=== PATIENT | female | born 1990 | race African-American/Black ===

== ENCOUNTER 2017-08-28 09:52 | Emergency (ER) | payer BC, OTHER ==
[~2017-08-28] VITALS: Ht 160 cm; Wt 105.1 kg
[~2017-08-28 09:52] MED LIST: DIPH25CA37 PO; TYLOTC500 PO
[2017-08-28 10:06] VITALS: TEMP 37.3; Ht 160 cm; Wt 105.1 kg
[2017-08-28] MEDS ORDERED: OSELTAMIVIR PHOSPHATE 75 MG CAP PO STA (10:47)
[2017-08-28] MEDS ORDERED: KETOROLAC TROMETHAMINE 60 MG/2 ML VIAL IM STA (10:47)
[2017-08-28] MEDS ORDERED: DEXAMETHASONE **PF** INJ 10 MG/ML VIAL ONE (10:52)
[2017-08-28 11:00] LABS: INFLUENZA B ANTIGEN Neg for Influ B (NEG)
[2017-08-28] MEDS ORDERED: DEXAMETHASONE SOD INJ 4 MG/ML 5 ML VIAL IM ONE (11:00)
[2017-08-28] MEDS ORDERED: OSEL75CA12 PO (11:14)
--- NOTE | 2017-08-28 11:16 | EMERGENCY ROOM VISIT NOTE ---
History Report prepared by Nasir: Nixon Gallagher Under the Supervision of: Dr. Yg Nation D.O. First contact with patient: 10:43 Chief Complaint: FLU LIKE SX Stated Complaint: FLU LIKE SYMPTOMS, SORE THROAT History of Present Illness The patient is a 27 year old female who presents to the Emergency Room with complaints of persistent body aches and pains. The patient is also complaining of a severe sore throat, fevers, and sweats. She was significantly diaphoretic throughout the night last night. The patient noted that her mother was recently diagnosed with influenza. She has not had any runny nose or coughs. Source of History: patient Position: other (Global) Quality: other (Aches) Associated Symptoms: + sorethroat, No cough Review of Systems See HPI for pertinent positives & negatives. A total of 10 systems reviewed and were otherwise negative. Past Medical & Surgical Medical Problems: (1) Migraine Family History No pertinent family histories discussed. Social History Smoking Status: Current Every Day Smoker Alcohol Use: occasionally Marital Status: single Housing Status: lives with family Current/Historical Medications No Active Prescriptions or Reported Meds Allergies Coded Allergies: Sumatriptan (Unverified Allergy, Mild, 08/28/17) Amoxicillin (Verified Allergy, Unknown, UNK, 08/28/17) Physical Exam Vital Signs Date Time Temp Pulse Resp B/P (MAP) Pulse Ox O2 Delivery O2 Flow Rate FiO2 08/28/17 10:06 37.3 93 18 138/85 96 Room Air Physical Exam CONSTITUTIONAL/VITAL SIGNS: Reviewed / noted above. GENERAL: Non-toxic in appearance. INTEGUMENTARY: Warm, dry, and [place]. HEAD: Normocephalic. EYES: without scleral icterus or trauma. ENT/OROPHARYNX: There is mild erythema to the posterior oropharynx. LYMPHADENOPATHY/NECK: Is supple without lymphadenopathy or meningismus. RESPIRATORY: Lungs clear and equal. CARDIOVASCULAR: Regular rate and rhythm. GI/ABDOMEN: Soft and nontender. No organomegaly or pulsatile mass. No rebound or guarding. Normal bowel sounds. EXTREMITIES: Warm and well perfused. BACK: No CVA tenderness. NEUROLOGICAL: Intact without focal deficits. PSYCHIATRIC: normal affect. MUSCULOSKELETAL: Normally developed with good muscle tone. Medical Decision & Procedures Laboratory Results Test 08/28/17 10:22 Influenza Type A Antigen Neg for Influ A (NEG) Influenza Type B Antigen Neg for Influ B (NEG) Laboratory results as stated above per my review. Medications Administered Medications (Trade) Dose Ordered Sig/Roland Route Start Time Stop Time Status Last Admin Dose Admin Ketorolac Tromethamine (Toradol Inj) 60 mg NOW STAT IM 08/28/17 10:47 08/28/17 10:48 DC 08/28/17 11:00 60 MG Oseltamivir Phosphate (Tamiflu Cap) 75 mg NOW STAT PO 08/28/17 10:47 08/28/17 10:48 DC 08/28/17 10:59 75 MG Dexamethasone Sodium Phosphate (Dexamethasone Inj Pf) 10 mg STK-MED ONCE .ROUTE 08/28/17 10:52 08/28/17 10:53 DC 08/28/17 11:01 5 MG ED Course 1045: Previous medical records were reviewed. The patient was evaluated in room A12B. A complete history and physical examination was performed. 1047: Ordered Tamiflu 75 mg PO, Toradol 60 mg IM. 1100: Ordered Decadron 5 mg IM. 1116: I discussed the results and findings with the patient. She verbalized agreement of the treatment plan. The patient was discharged home. Medical Decision Differential includes viral illness, influenza, streptococcal pharyngitis, meningitis, pneumonia, sinusitis, UTI, pyelonephritis, otitis media. This is a 19-year-old female who presents to the ED with a chief complaint of flulike symptoms. The patient reports a fever subjectively last night. She also reports aches and pains and a sore throat. She states that her mother had the flu recently. The patient states that her symptoms started last night. The patient denies any other symptoms. She was started on Tamiflu. Her flu swab was negative and a strep test was negative. She was also given some Toradol IM and Decadron IM. Impression Primary Impression: Influenza-like symptoms Scribe Attestation The scribe's documentation has been prepared under my direction and personally reviewed by me in its entirety. I confirm that the note above accurately reflects all work, treatment, procedures, and medical decision making performed by me. Departure Information Dispostion Home / Self-Care Prescriptions Oseltamivir (Tamiflu) 75 Mg Cap 75 MG PO BID, #10 CAP Prov: Yg Nation D.O. 08/28/17 Referrals Jennifer Pino M.D. (PCP) Patient Instructions My [facility] Additional Instructions Take Tylenol/Motrin as needed for symptoms. Use [id number] cold and flu medicines as necessary. Tamiflu as prescribed.
[2017-08-28] MEDS ORDERED: ONDANSETRON 4MG OD TAB ONE (11:54)
[2017-08-28] MEDS ORDERED: ONDANSETRON 4MG OD TAB PO ONE (12:00)
[2017-08-28 12:24] VITALS: BP 122/94; PULSE 116; O2SAT 99
--- NOTE | 2017-08-30 15:25 | Pharmacy Progress Note ---
ED Pharmacist Culture FollowUp Date of Service: Aug 30, 2017. Patient's back-up GAS cx is growing GAS (few in quantity). Patient had sore throat, fever and sweats. She noted her mother was recently diagnosed with influenza. Initial rapid GAS screen was negative. Influenza A/B Ag were also negative. Patient was dx with influenza like illness and discharged on Tamiflu. Reviewed cx results with Dr Nation who had seen her prior. He recommended not placing the patient on abx for treatment of GAS pharyngitis as there were only a "few" reported growing in the culture. He felt if there should have been larger quantities in this cx to warrant treatment with abx.
== END 2017-08-28 12:25 | disposition home or self-care (01) ==
LOC: C.EDB 09:54 → C.EDA 12:25
DX: R50.9 Fever, unspecified (principal); J02.9 Acute pharyngitis, unspecified; R52 Pain, unspecified; G43.909 Migraine, unspecified, not intractable, without status migrainosus; F17.210 Nicotine dependence, cigarettes, uncomplicated; Z88.1 Allergy status to other antibiotic agents; Z88.6 Allergy status to analgesic agent

== ENCOUNTER 2017-12-07 07:36 | Emergency (ER) | payer BC ==
[~2017-12-07] VITALS: Ht 160 cm; Wt 95.0 kg
[~2017-12-07 07:36] MED LIST changes: -DIPH25CA37 PO; +OSEL75CA12 PO; -TYLOTC500 PO
[2017-12-07 07:39] VITALS: TEMP 36.9; Ht 160 cm; Wt 95.0 kg
[2017-12-07] MEDS ORDERED: KETOROLAC TROMETHAMINE 60 MG/2 ML VIAL IM STA (07:47)
--- NOTE | 2017-12-07 08:57 | DIAGNOSTIC IMAGING REPORT ---
R EXTREMITY NONVASCULAR LIMITED HISTORY: 27 years-old Female right calf eval for muscle tear/hematoma acute pain of the medial lower right calf COMPARISON: None available TECHNIQUE: Multiple real-time sonographic images of the right calf were obtained assessing grayscale appearance and color flow. FINDINGS: Within the distribution of the distal aspect of the medial head gastrocnemius musculature there is heterogeneity with indistinctness of the distal muscle fibers with a focal hypoechoic ill-defined area measuring 0.9 x 0.5 x 0.4 cm suggesting a small hematoma. The imaged Achilles tendon appears normal. IMPRESSION: Findings suggest acute grade II strain of the medial head gastrocnemius. The above report was generated using voice recognition software. It may contain grammatical, syntax or spelling errors. Electronically signed by: Carlos Salter M.D. 12/07/2017 8:56 AM Dictated Date/Time: 12/07/2017 8:34 AM
[2017-12-07 09:58] VITALS: BP 131/76; PULSE 68; O2SAT 98
--- NOTE | 2017-12-07 14:36 | EMERGENCY ROOM VISIT NOTE ---
History Report prepared by Nasir: Nixon Gallagher Under the Supervision of: Dr. Logan Lehman M.D. First contact with patient: 07:40 Chief Complaint: LEG PAIN,LEG INJURY Stated Complaint: rt leg pain History of Present Illness The patient is a 27 year old female who presents to the Emergency Room with complaints of constant pain in her right calf, that onset suddenly earlier this morning. 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 Since the "pop" she feels like her right foot is going numb as well. The right calf felt normal before this occurred. The patient also notes that she had a fever 4 nights ago, but had no other symptoms aside from a runny nose. She denies any chest pain, dyspnea, or urinary difficulties. Source of History: patient Onset: This morning Position: leg (Right calf) Symptom Intensity: severe Quality: other ("pop") Timing: constant Modifying Factors (Worsening): movement Associated Symptoms: + numbness (in right foot), No chest pain, No SOB Review of Systems See HPI for pertinent positives & negatives. A total of 10 systems reviewed and were otherwise negative. Past Medical & Surgical Medical Problems: (1) Migraine Family History Cancer Diabetes mellitus Heart disease Hypertension Kidney disease Kidney stones Lung disease Seizures Social History Smoking Status: Current Every Day Smoker Alcohol Use: occasionally Marital Status: single Housing Status: lives with family Current/Historical Medications No Active Prescriptions or Reported Meds Allergies Coded Allergies: Sumatriptan (Unverified Allergy, Mild, 12/07/17) Amoxicillin (Verified Allergy, Unknown, UNK, 12/07/17) Penicillins (Unverified Allergy, Unknown, feels like bugs are clawing on skin, 12/07/17) Physical Exam Vital Signs Date Time Temp Pulse Resp B/P (MAP) Pulse Ox O2 Delivery O2 Flow Rate FiO2 12/07/17 09:58 68 18 131/76 98 12/07/17 07:39 36.9 79 18 128/77 99 Room Air Physical Exam Constitutional: Vital signs reviewed. Eyes: Pupils are equal round reactive to light. Conjunctiva are noninjected. ENT: Pharynx is clear without erythema or exudate. Mucous membranes are moist. Neck supple without meningeal signs. Respiratory: Clear to auscultation bilaterally. Breath sounds are equal bilaterally. Cardiovascular: Regular rate and rhythm. No rubs or gallops. GI: Soft, nondistended and nontender. Bowel sounds are present. Musculoskeletal: No peripheral edema. There is diffuse right calf tenderness without swelling or deformity or erythema or increased warmth. Normal distal pulses. There is a tattoo over the dorsum of the foot. No tenderness over the Achilles tendon. Negative Shepherd sign for tendon injury. Integumentary: No cyanosis. Neurological: The patient is awake and alert. No focal deficits. Normal sensation throughout the right foot and ankle. Psychiatric: Normal affect. Medical Decision & Procedures ER Provider Diagnostic Interpretation: Radiology results as stated below per my review and the radiologist's interpretation: R EXTREMITY NONVASCULAR LIMITED HISTORY: 27 years-old Female right calf eval for muscle tear/hematoma acute pain of the medial lower right calf COMPARISON: None available TECHNIQUE: Multiple real-time sonographic images of the right calf were obtained assessing grayscale appearance and color flow. FINDINGS: Within the distribution of the distal aspect of the medial head gastrocnemius musculature there is heterogeneity with indistinctness of the distal muscle fibers with a focal hypoechoic ill-defined area measuring 0.9 x 0.5 x 0.4 cm suggesting a small hematoma. The imaged Achilles tendon appears normal. IMPRESSION: Findings suggest acute grade II strain of the medial head gastrocnemius. The above report was generated using voice recognition software. It may contain grammatical, syntax or spelling errors. Electronically signed by: Carlos Salter M.D. 12/07/2017 8:56 AM Dictated Date/Time: 12/07/2017 8:34 AM Medications Administered Medications (Trade) Dose Ordered Sig/Roland Route Start Time Stop Time Status Last Admin Dose Admin Ketorolac Tromethamine (Toradol Inj) 10 mg NOW STAT IM 12/07/17 07:47 12/07/17 07:49 DC 12/07/17 08:07 10 MG ED Course 0738: The patient was evaluated in room A3. A complete history and physical exam was performed. 0747: Ordered Toradol 10 mg IM. 0804: I updated the patient at this time. I informed her that she will have an ultra sound of the calf. 0932: Upon reevaluation, the patient appeared to have improvement of her symptoms. I discussed today's findings with her, and explained compartment syndrome information. She verbalized agreement of the treatment plan. The patient was discharged home. Medical Decision This is a 27-year-old female presents with right calf pain. Diagnosis includes ; Plantaris strain, soleus strain, gastrocnemius strain, ruptured Robertson's cyst. I did perform a limited focused review of portions of the patient's old chart on the electronic medical record. The patient has had no recent pertinent visits to this hospital. I did evaluate the patient as noted above. The patient developed sudden onset of pain to her right calf after lifting. She felt a pop in that area. She has no visit to her tendon function or any neurologic deficit. I did treat her with Toradol 10 mg IM. I did order an ultrasound of the right calf. I did review the images myself as well as the radiology report as described above. She does have a gastrocnemius strain with a small hematoma. I did discuss the test results with the patient. She was given crutches and advised follow-up with her doctor and or orthopedics. She was discharged in good condition. I did discuss precautions for compartment syndrome with her. Medication Reconcilliation Current Medication List: was personally reviewed by me Blood Pressure Screening Patient's blood pressure: Elevated blood pressure Blood pressure disposition: Elevated BP felt to be situational Impression Primary Impression: Gastrocnemius strain Scribe Attestation The scribe's documentation has been prepared under my direct and personally reviewed by me in its entirety. I confirm that the note above accurately reflects all work, treatment, procedures, and medical decision making performed by me. Departure Information Dispostion Home / Self-Care Prescriptions No Active Prescriptions or Reported Meds Referrals Jennifer Pino M.D. (PCP) Forms HOME CARE DOCUMENTATION FORM, IMPORTANT VISIT INFORMATION Patient Instructions My [facility] Additional Instructions You have been examined and treated today on an emergency basis only. This is not a substitute for, or an effort to provide, complete comprehensive medical care. It is impossible to recognize and treat all injuries or illnesses in a single emergency department visit. It is therefore important that you follow up closely with your physician or Dr Saez of orthopedics. Call as soon as possible for an appointment. Return for worsening symptoms or if you develop significant swelling, numbness, weakness, change in temperature or pallor to your right foot, or significant firmness to the calf any other concerning symptoms. Problem Qualifiers Primary Impression: Gastrocnemius strain Encounter type: initial encounter Laterality: right Qualified Codes: S86.111A - Strain of other muscle(s) and tendon(s) of posterior muscle group at lower leg level, right leg, initial encounter
== END 2017-12-07 09:59 | disposition home or self-care (01) ==
LOC: C.EDB 07:37 → C.EDA 09:59
DX: S86.111A Strain of other muscle(s) and tendon(s) of posterior muscle group at lower leg level, right leg, initial encounter (principal); X50.0XXA Overexertion from strenuous movement or load, initial encounter; F17.210 Nicotine dependence, cigarettes, uncomplicated; Z80.9 Family history of malignant neoplasm, unspecified; Z83.3 Family history of diabetes mellitus; Z82.49 Family history of ischemic heart disease and other diseases of the circulatory system; Z84.1 Family history of disorders of kidney and ureter; Z82.0 Family history of epilepsy and other diseases of the nervous system; Z88.0 Allergy status to penicillin; Z88.8 Allergy status to other drugs, medicaments and biological substances

== ENCOUNTER 2018-03-03 10:17 | Emergency (ER) | payer BC ==
[~2018-03-03] VITALS: Ht 160 cm; Wt 102.6 kg
[2018-03-03 10:20] VITALS: TEMP 37.1; Ht 160 cm; Wt 102.6 kg
[2018-03-03] MEDS ORDERED: ACETAMINOPHEN IV 100 ML IV STA (10:55)
[2018-03-03] MEDS ORDERED: DiphenhydrAMINE HCL 50 MG/ML VIAL IV STA (10:55)
[2018-03-03] MEDS ORDERED: METOCLOPRAMIDE HCL INJ 5 MG/ML 2 ML VIAL IV STA (10:55)
[2018-03-03] MEDS ORDERED: SODIUM CHLORIDE 0.9% 1000ML 1,000 ML IV STA (10:55)
[2018-03-03] MEDS ORDERED: PRENTAB26 PO (11:06)
[2018-03-03 12:25] VITALS: BP 115/58; PULSE 71; O2SAT 100
--- NOTE | 2018-03-03 15:34 | EMERGENCY ROOM VISIT NOTE ---
History Report prepared by Nasir: Suha Colon Under the Supervision of: Dr. Yang Camilo M.D. 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 She states she has had a headache behind her right eye for the past 3 days however, around 1930 last night, her headache significantly worsened. 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 The patient is also nauseous and vomiting and is currently 16 weeks with her first child. Source of History: patient Onset: 3 dys sea captain Position: head (behind her right eye) Symptom Intensity: a 10/10 in severity Quality: other ("a heartbeat in her head" ) Timing: worsening Associated Symptoms: + nausea, + vomiting Review of Systems See HPI for pertinent positives & negatives. A total of 10 systems reviewed and were otherwise negative. Past Medical & Surgical Medical Problems: (1) Migraine Family History Cancer Diabetes mellitus Heart disease Hypertension Kidney disease Kidney stones Lung disease Seizures Social History Smoking Status: Former Smoker Alcohol Use: occasionally Marital Status: single Housing Status: lives with family Current/Historical Medications Scheduled Multivit/Min/Iron/Fol Ac/Pren ( Vitamin), 1 TAB PO DAILY Allergies Coded Allergies: Sumatriptan (Unverified Allergy, Mild, 03/03/18) Amoxicillin (Verified Allergy, Unknown, UNK, 03/03/18) Penicillins (Unverified Allergy, Unknown, feels like bugs are clawing on skin, 03/03/18) Physical Exam Vital Signs Date Time Temp Pulse Resp B/P (MAP) Pulse Ox O2 Delivery O2 Flow Rate FiO2 03/03/18 12:25 71 18 115/58 100 03/03/18 11:30 71 18 116/53 99 Room Air 03/03/18 10:20 37.1 72 20 128/79 100 Room Air Physical Exam GENERAL: Patient is in no acute distress. HEENT: No acute trauma, normocephalic atraumatic, mucous membranes moist, no nasal congestion, no scleral icterus. Pupils equal and reactive to light. NECK: No stridor, no adenopathy, no meningismus, trachea is midline. LUNGS: Clear to auscultation bilaterally, no wheeze, no rhonchi, breath sounds equal. HEART: Without murmurs gallops or rubs, regular rate and rhythm. ABDOMEN: Soft, nontender, bowel sounds positive, no hernias, no peritonitis. EXTREMITIES: No cyanosis or edema, full range of motion of all the joints without pain or difficulty, no signs for acute trauma. NEUROLOGIC: Oriented x 3, no acute motor or sensory deficits, no focal weakness. No cerebellar deficits. SKIN: No rash, no jaundice, no diaphoresis Medical Decision & Procedures Medications Administered Medications (Trade) Dose Ordered Sig/Roland Route Start Time Stop Time Status Last Admin Dose Admin Sodium Chloride 1,000 ml @ 999 mls/hr Q1H1M STAT IV 03/03/18 10:55 03/03/18 11:55 DC 03/03/18 10:55 999 MLS/HR Metoclopramide HCl (Reglan Inj) 10 mg NOW STAT IV 03/03/18 10:55 03/03/18 10:57 DC 03/03/18 11:05 10 MG Diphenhydramine HCl (Benadryl Inj) 50 mg NOW STAT IV 03/03/18 10:55 03/03/18 10:57 DC 03/03/18 11:05 50 MG Acetaminophen 100 ml @ 400 mls/hr NOW STAT IV 03/03/18 10:55 03/03/18 11:09 DC 03/03/18 11:05 400 MLS/HR ED Course 1052: The patient was evaluated in room A10. A complete history and physical exam was performed. 1055: Ordered Aetaminophen 100 ml @ 400 mls/hr IV, Benadryl Inj 50 mg IV, Reglan Inj 10 mg IV, Sodium Chloride 1000 ml @ 999 mls/hr IV 1205: Reevaluated the patient. She is feeling much better. Discussed results and discharge instructions: She verbalized understanding and agreement. The patient is ready for discharge. Medical Decision Differential diagnosis: Etiologies such as migraine headache, tension headache, dehydration, UTI, intracranial bleeding, meningitis, as well as others were entertained. Patient presents with a right sided headache. She has had nausea and photophobia. She feels this is a migraine and has a history of the same. On exam, there were no focal neurologic deficits. She was not febrile or toxic, there was no meningismus. Patient received IV saline, IV Tylenol, IV Benadryl and IV Reglan. She feels markedly improved. The patient's headache is very likely migrainous. She is being discharged with rest and hydration. If worsening, she can return. Medication Reconcilliation Current Medication List: was personally reviewed by me Blood Pressure Screening Patient's blood pressure: Normal blood pressure Blood pressure disposition: Did not require urgent referral Impression Primary Impression: Headache Scribe Attestation The scribe's documentation has been prepared under my direction and personally reviewed by me in its entirety. I confirm that the note above accurately reflects all work, treatment, procedures, and medical decision making performed by me. Departure Information Dispostion Home / Self-Care Referrals No Doctor, Assigned (PCP) Forms HOME CARE DOCUMENTATION FORM, IMPORTANT VISIT INFORMATION Patient Instructions My [facility] Additional Instructions rest fluids return if worsening
== END 2018-03-03 12:26 | disposition home or self-care (01) ==
LOC: C.EDB 10:19 → C.EDA 12:26
DX: G43.909 Migraine, unspecified, not intractable, without status migrainosus (principal); Z33.1 Pregnant state, incidental; Z87.891 Personal history of nicotine dependence; Z88.8 Allergy status to other drugs, medicaments and biological substances; Z88.0 Allergy status to penicillin

== ENCOUNTER 2018-08-20 04:57 | Inpatient (IN) ==
[2018-08-20] MEDS ORDERED: CLINDAMYCIN 900 MG in DEXTROSE 5% 100 ML IV SCH (06:30)
--- NOTE | 2018-08-20 06:30 | History & Physical Report ---
Date of Service August 20, 2018 Assessment & Plan (1) Uterine contractions at greater than 20 weeks of gestation: 28 yo at 40.2 wks with ctxs, cervix 1 cm GBS +, allergic to Amoxicilline, sensitive to Clindamycin Patient desires to walk Plan observe, labs, monitor, ambulate and Clindamycin sign out to Dr. Joseph History of Present Illness Chief Complaint: contractions Primary Care Provider: Jennifer Pino MD Patient is a 28 yo at 40.2 wks who started to feel ctxs around 2 am, got closer and regular ovr time She presented to L&D No LOF Minimal brown d/c+ +FM Her has been complicated by 1) Depression 2) Class II Obesity 3) Chronic Neutropenia 4) GBS+ Allergies Allergy/AdvReac Type Severity Reaction Status Date / Time sumatriptan Allergy Mild . Unverified 04/19/18 13:06 amoxicillin Allergy Unknown UNK Verified 04/19/18 13:06 Penicillins Allergy Unknown feels like Unverified 04/19/18 13:06 bugs are clawing on skin Home Medications Home Medications Medication Instructions Recorded Confirmed Type PNV,calcium [id number] acid 1 mg PO DAILY 08/20/18 08/20/18 History [ Vitamin Plus Low Iron] ferrous sulfate 325 mg PO DAILY 08/20/18 08/20/18 History Patient History Medical History Migraine (Acute) Acute sinusitis B12 deficiency Neutropenia Polyarthropathy Social History marital status: Single Current Living Situation: Significant Other Other Information That Helps Us Care for You: No Feels Safe at Home: Yes Smoking Status: Former smoker Do You Dip or Chew Tobacco: No Second Hand Exposure: No Tobacco Cessation Education Requested by Patient: No Hx Alcohol Use: No Hx Substance Use: No Beliefs That Will Affect Care: None Preferred Language: Indonesian Communication Ability: Effective Marketing Research Intern Required: No Review of Systems All systems reviewed & are unremarkable except as noted in HPI & below Physical Exam 2 Vital Signs (Past 24 Hours): Last Vital Signs Temp 37.2 C 08/20/18 05:13 Pulse 71 08/20/18 06:13 Resp 18 08/20/18 05:13 BP 147/86 H 08/20/18 06:13 Constitutional: WD/WN, vitals as above well nourished Mild distress with ctxs Bed side US: vertex, DILMA 7.4 cm Genitourinary: Manual OB Exam: + cervical dilation 1 cm, + cervical effacement 60% and + station -2 Monitoring External Monitor Categ I Tocodynamometer ctxs q -4 min
[2018-08-20 06:45] LABS: Basophils # (auto) 0.01 K/uL (0-0.2); Basophils % (auto) 0.3 %; Eosinophils # (auto) 0.13 K/uL (0-0.5); Eosinophils % (auto) 3.6 %; Hematocrit (blood only) 35.2 % (37-47); Hemoglobin 11.9 g/dL (12.0-16.0); Immature Granulocytes # (auto) 0.01 K/uL (0.00-0.02); Immature Granulocytes % (auto) 0.3 %; Lymphocytes # (auto) 1.31 K/uL (1.2-3.4); Lymphocytes % (auto) 35.8 %; Mean Corpuscular Hgb Conc 33.8 g/dL (32-36); Mean Corpuscular Volume 86.1 fL (80-100); Mean Platelet Volume 10.1 fL (7.4-10.4); Monocytes # (auto) 0.43 K/uL (0.11-0.59); Monocytes % (auto) 11.7 %; Neutrophils # (auto) 1.77 K/uL (1.4-6.5); Neutrophils % (auto) 48.3 %; Platelet Count 300 K/uL (130-400); RDW Coefficient of Variation 13.5 % (11.5-14.5); RDW Standard Deviation 42.3 fL (36.4-46.3); Red Blood Count 4.09 M/uL (4.2-5.4); White Blood Count 3.66 K/uL (4.8-10.8)
[2018-08-20 07:22] LABS: Albumin Level 2.7 gm/dl (3.4-5.0); BUN Creatinine Ratio 18.5 (10-20); Calcium 8.8 mg/dl (8.5-10.1); Creatinine Clr Calc Pharmacy 186.4 ml/min; Est GFR (African American) 146.9; Est GFR (Non-African American) 126.8; Potassium 3.7 mmol/L (3.5-5.1)
[2018-08-20 07:24] LABS: Albumin Globulin Ratio 0.6 (0.9-2); Bilirubin,Total 0.2 mg/dl (0.2-1); Globulin 4.4 gm/dl (2.5-4.0); Total Protein 7.1 gm/dl (6.4-8.2)
[2018-08-20] MEDS ORDERED: CEFAZOLIN 2000MG 2,000 MG/15 ML SYR IV STA (09:23)
[2018-08-20] MEDS ORDERED: OXYTOCIN 30 UNITS/500 ML BAG IV PRN ×2 (09:23)
[2018-08-20] MEDS ORDERED: CEFAZOLIN 1000MG 1,000 MG/7.5 ML SYR IV PRN (09:23)
[2018-08-20] MEDS ORDERED: LACTATED RINGER'S 1,000 ML IV PRN ×3 (09:23→13:15)
--- NOTE | 2018-08-20 09:33 | Labor Progress Brief Note ---
Date of Service August 20, 2018 Met pt and reviewed course FHR; CAT1 Ctx; 1-4mins VE; 1-2/50/-3 pt reports ctx is worsening in intensity started on antibx by Dr Taylor will proceed with admission orders Physical Exam 2 Vital Signs (Past 24 Hours): Last Vital Signs Temp 36.9 C 08/20/18 07:44 Pulse 66 08/20/18 07:47 Resp 20 08/20/18 07:44 BP 140/89 08/20/18 07:47
[2018-08-20] MEDS: LACTATED RINGER'S 1,000 ML IV SCH ×3 (10:13→20:42)
[2018-08-20] MEDS ORDERED: BUPIVACAINE 0.25% 30 ML VIAL ONE ×2 (12:11→22:07)
[2018-08-20] MEDS ORDERED: ePHEDrine sulfate 50 MG/ML AMP ONE (12:11)
[2018-08-20] MEDS ORDERED: fentaNYL citrate 100 MCG/2 ML VIAL ONE ×2 (12:11→22:07)
[2018-08-20] MEDS ORDERED: fentaNYL 2MCG/ML ROPIV 1.25MG/ML 100 ML BAG EPI ONE (12:12)
--- NOTE | 2018-08-20 12:23 | Anesthesiology Consultation ---
Date of Service August 20, 2018 Assessment & Plan (1) Encounter for pre-operative examination: Chart Review Chart Review: Patient NOT seen in Pre Admission Testing and Acceptable Risk for Labor Epidural Consults Requested none ASA ASA2 Proposed Anesthesia Anesthesia Type: Labor Epidural Risk / Benefits Reviewed With: PT / POA / Parent / Guardian, Accepts Plan and Informed Consent Obtained Additional Notes No anticoagulation, no h/o major bleeding disorder NPO Date Last Intake of Fluids: 08/20/18 Time Last Intake of Fluids: 12:10 Last Intake of Fluids Comment: Sips of water Date Last Intake of Solids: 08/19/18 Time Last Intake of Solids: 19:30 History Height/Weight Height: 1.6 m Weight: 117.027 kg Allergies Allergy/AdvReac Type Severity Reaction Status Date / Time sumatriptan Allergy Mild . Unverified 04/19/18 13:06 amoxicillin Allergy Unknown UNK Verified 04/19/18 13:06 Penicillins Allergy Unknown feels like Unverified 04/19/18 13:06 bugs are clawing on skin Medications Home Medications Medication Instructions Recorded Confirmed Last Taken PNV,calcium 05-gyqa-dnakj acid 1 mg PO DAILY 08/20/18 08/20/18 Unknown [ Vitamin Plus Low Iron] ferrous sulfate 325 mg PO DAILY 08/20/18 08/20/18 Unknown Active Medications Generic Name Dose Route Start Last Admin Trade Name Freq PRN Reason Stop Dose Admin Lactated Ringer's 1,000 mls @ 125 mls/hr 08/20/18 09:30 08/20/18 12:05 Lr IV 08/22/18 09:29 999 mls/hr .Q8H JESSICA Infusion Oxytocin 30 units in 500 mls @ 4 mls/hr 08/20/18 09:23 08/20/18 11:23 Pitocin IV 08/22/18 09:22 0.24 units/hr .Q24H PRN 4 mls/hr Labor Induction/Augmentation Titration Protocol 0.24 UNITS/HR Past Medical History Medical History Migraine (Acute) Acute sinusitis Resolved Anemia B12 deficiency Neutropenia Polyarthropathy Past Family History Family History Mother Family history of diabetes mellitus Father Hypertension Brother Hypertension Father Stroke Past Anesthesia History No Family Hx of Anesthesia Complications Pt never had anesthesia before History of PONV No Motion Sickness Screening History of Motion Sickness: No Social History Smoking Status: Former smoker Do You Dip or Chew Tobacco: No Hx Alcohol Use: No Hx Substance Use: No substance use type: does not use Exercise / Class Metabolic Activity II 4-5 Yardwork/Stairs/Walk up hill Physical Exam Vital Signs Last Vital Signs Temp 37.1 C 08/20/18 12:06 Pulse 75 08/20/18 12:20 Resp 20 08/20/18 12:06 BP 145/87 H 08/20/18 12:06 Pulse Ox 100 08/20/18 12:20 ENMT Mouth: no TMJ abnormality and no TMJ clicking Thyromental Distance: < 3.5 Finger Breadths Mallampati Class: III Neck neck extension not limited Respiratory Auscultation: lungs clear to auscultation bilaterally Cardiovascular Rate/Rhythm: regular rate and regular rhythm Psychiatric Orientation: alert and oriented x 3 Testing Laboratory Results 08/20/18 06:25 08/20/18 06:25 Blood Type O Positive 08/20/18 06:25 Antibody Screen NEGATIVE 08/20/18 06:25
[2018-08-20] MEDS ORDERED: ePHEDrine sulfate 50 MG/ML AMP IV PRN (13:15)
[2018-08-20] MEDS ORDERED: DiphenhydrAMINE HCL 50 MG/ML VIAL IV PRN (13:15)
[2018-08-20] MEDS ORDERED: ONDANSETRON INJ 2 MG/ML 2 ML VIAL IV PRN (13:15)
[2018-08-20] MEDS ORDERED: NALBUPHINE HCL INJ 10 MG/ML AMP IV PRN (13:15)
[2018-08-20] MEDS ORDERED: NALOXONE HCL 0.4 MG/1 ML VIAL/CARP IV PRN (13:15)
[2018-08-20] MEDS ORDERED: PROMETHAZINE HCL 12.5 MG in SODIUM CHLORIDE 0.9% 50 ML IV PRN (13:15)
[2018-08-20] MEDS ORDERED: NALOXONE HCL 1 MG in SODIUM CHLORIDE 0.9% 1000ML 1,000 ML IV PRN (13:15)
--- NOTE | 2018-08-20 17:38 | Labor Progress Brief Note ---
Date of Service August 20, 2018 SROM- reported by nurse doing well VE 7cm On Pitocin ctx 1-3mins anticipate VD Physical Exam 2 Vital Signs (Past 24 Hours): Last Vital Signs Temp 37.1 C 08/20/18 17:00 Pulse 80 08/20/18 17:32 Resp 18 08/20/18 17:00 BP 142/76 H 08/20/18 17:23 Pulse Ox 99 08/20/18 17:32
[2018-08-20] MEDS ORDERED: Nursing to Pharmacy Communication ONE (18:38)
[2018-08-20] MEDS: fentaNYL 2MCG/ML ROPIV 1.25MG/ML 100 ML BAG EPI PRN (19:42)
[2018-08-20] MEDS ORDERED: CALCIUM CARBONATE 500 MG CHEWABLE TAB PO PRN (19:43)
--- NOTE | 2018-08-20 20:05 | Pain Management Progress Note ---
Date of Service August 20, 2018 Subjective Called by nursing for pain despite labor epidural. Patient admits that pain is predominantly pressure with a little bit of burning in the perineal region. Pain is worse with contractions. LORS 10cm with cath to 18cm per note. Level to ice =T7 BL. Pt epidural site C/D/I and re-enforced with tape. Difficult to assess level at skin secondary to tape placement. No erythema/drainage. VSS. A/P: no bolus required at this time as level to ice appropriate. Re-assurance given to patient. Epidural appears effective at current dosing. No changes made. Dr. Zavala/nursing made aware. Physical Exam 2 Vital Signs (Past 24 Hours): Last Vital Signs Temp 37.5 C 08/20/18 19:15 Pulse 88 08/20/18 19:57 Resp 18 08/20/18 19:15 BP 129/80 08/20/18 19:54 Pulse Ox 98 08/20/18 19:57
[2018-08-20] MEDS: ACETAMINOPHEN 325 MG TAB PO PRN (20:14)
--- NOTE | 2018-08-20 22:05 | History and Physical Report ---
DATE OF ADMISSION: 08/20/2018 HISTORY OF PRESENT ILLNESS: The patient is a 28-year-old G2, P0 due date 08/18/2018 making her 40 weeks and 2 days, presented to labor and delivery with contractions every 4-5 minutes. The patient's contraction has increased in intensity, decision therefore was made to admit patient and anticipate vaginal delivery. Bedside ultrasound by Dr. Garcia showed cephalic presentation with amniotic fluid of 16. COURSE: Has been unremarkable. LABS: O positive antibody negative, rubella immune, GBS positive. PAST MEDICAL HISTORY: Significant for history of allergic rhinitis, migraines, tobacco use, and history of neutropenia. PAST SURGICAL HISTORY: The patient had D and C in 2017. ALLERGIES: THE PATIENT ALLERGIC TO AMOXICILLIN. SHE REPORTS A FEELING OF A BUGS CRAWLING ON HER ARMS. DENIES ANY ANAPHYLACTIC REACTION. MEDICATIONS: The patient is on iron and vitamins. SOCIAL HISTORY: The patient is a smoker. Denies drug or alcohol use. FAMILY HISTORY: Noncontributory. PHYSICAL EXAMINATION: GENERAL: Well-developed, well-nourished black female in no acute distress. HEART: S1, S2, regular rhythm and rate. LUNGS: Clear to auscultation bilaterally. ABDOMEN: Gravid. heart rate is category I. PELVIC: 1-2 cm, 50% effaced, and -3 station. EXTREMITIES: No cyanosis, clubbing, or edema. ASSESSMENT AND PLAN: A 28-year-old G2, P0 at 40 and 2 days in labor. Plan is to admit patient. The patient will receive antibiotics for GBS prophylaxis. The patient will be started on Ancef. I HAVE DISCUSSED THE RISKS OF 4%-10% CROSS REACTIVITY TO AMOXICILLIN. The patient has agreed to and will put that we will proceed with antibiotic prophylaxis.
[2018-08-20] MEDS ORDERED: fentaNYL citrate 100 MCG/2 ML VIAL INJ STA (22:15)
[2018-08-20] MEDS ORDERED: BUPIVACAINE 0.25% 30 ML VIAL INJ STA (22:19)
[2018-08-21] MEDS: fentaNYL 2MCG/ML ROPIV 1.25MG/ML 100 ML BAG EPI PRN (00:39)
[2018-08-21] MEDS ORDERED: ACETAMINOPHEN 325 MG TAB PO PRN (01:25)
[2018-08-21] MEDS ORDERED: BISACODYL 10 MG SUPP PR PRN (01:25)
[2018-08-21] MEDS ORDERED: DIPHTHERIA/TETANUS/PERTUSSIS 0.5 ML SYR/VIAL IM ONE (01:25)
[2018-08-21] MEDS ORDERED: OXYTOCIN 30 UNITS/500 ML BAG IV PRN (01:25)
[2018-08-21] MEDS ORDERED: BENZOCAINE 20% AER SPR 82.5 GM CAN EXT PRN (01:25)
[2018-08-21] MEDS ORDERED: SUPERCREAM 0.870% 15 GM JAR EXT PRN (01:25)
[2018-08-21] MEDS ORDERED: miSOPROStol 200 MCG TAB PR ONE (01:25)
[2018-08-21] MEDS ORDERED: HYDROCORTISONE ACETATE 25 MG SUPP PR PRN (01:25)
[2018-08-21] MEDS ORDERED: miSOPROStol 200 MCG TAB ONE (01:47)
--- NOTE | 2018-08-21 02:17 | Delivery Summary ---
DATE OF OPERATION: 08/20/2018 DELIVERY NOTE The patient delivered a live male in right occiput anterior presentation. There was nuchal cord which was easily reduced. Infant was delivered and placed on mother's abdomen. Cord was clamped and cut. There was terminal meconium noted. Placenta was spontaneously delivered. Inspection of the placenta shows a grossly normal placenta with 3-vessel cord. Pelvic exam post-placental delivery showed a second-degree midline laceration. Estimated blood loss is 600 mL. A second-degree laceration is repaired with 2-0 Vicryl in layers. Rectal exam post repair showed good sphincter tone. ESTIMATED BLOOD LOSS: 600 mL. All instruments were removed from the vagina including retractors, sutures and sponges and accounted for x2. Baby and mother are doing well in recovery. I attest to the content of the Intraoperative Record and any orders documented therein. Any exception s are noted below.
[2018-08-21] MEDS: IBUPROFEN 600 MG TAB PO PRN ×5 (03:25→23:32)
--- NOTE | 2018-08-21 05:36 | Anesthesia Procedure Note ---
Date of Service August 21, 2018 Anesthesia Post Epidural Note Vital Signs Vital Signs: Temp Pulse Resp BP Pulse Ox 08/21/18 02:22 86 134/63 08/21/18 02:08 76 139/65 08/21/18 01:53 112 H 141/67 H 08/21/18 01:37 87 141/67 H 08/21/18 01:23 92 H 144/68 H 08/21/18 01:14 98 H 164/75 H 08/21/18 01:08 106 H 165/86 H 08/21/18 00:38 100 H 160/82 H 08/21/18 00:30 108 H 92 08/21/18 00:27 109 H 99 08/21/18 00:24 104 H 93 08/21/18 00:22 113 H 152/70 H 98 08/21/18 00:18 104 H 92 08/21/18 00:17 100 H 100 08/21/18 00:13 37.5 C 18 08/21/18 00:12 109 H 100 08/21/18 00:10 115 H 92 08/21/18 00:08 100 H 162/86 H 08/21/18 00:07 97 H 100 08/21/18 00:02 105 H 100 08/20/18 23:57 96 H 100 08/20/18 23:53 90 155/87 H 08/20/18 23:52 94 H 100 08/20/18 23:47 90 100 08/20/18 23:42 95 H 98 08/20/18 23:40 18 08/20/18 23:37 96 H 150/84 H 100 08/20/18 23:32 96 H 99 08/20/18 23:27 92 H 98 08/20/18 23:24 97 H 140/80 08/20/18 23:22 92 H 98 08/20/18 23:17 89 99 08/20/18 23:12 89 99 08/20/18 23:08 84 146/68 H 08/20/18 23:07 82 98 08/20/18 23:02 86 99 08/20/18 22:57 82 99 08/20/18 22:55 37.6 C H 18 08/20/18 22:54 85 135/78 08/20/18 22:52 84 97 08/20/18 22:47 88 98 08/20/18 22:42 92 H 97 08/20/18 22:38 83 139/80 08/20/18 22:37 84 97 08/20/18 22:32 87 98 08/20/18 22:27 87 98 08/20/18 22:22 88 147/74 H 98 08/20/18 22:17 92 H 99 08/20/18 22:12 88 99 08/20/18 22:08 93 H 144/75 H 08/20/18 22:07 93 H 100 08/20/18 22:02 88 98 08/20/18 21:57 83 100 08/20/18 21:53 93 H 144/80 H 08/20/18 21:52 92 H 99 08/20/18 21:47 90 96 08/20/18 21:42 87 98 08/20/18 21:40 37.2 C 18 08/20/18 21:37 89 99 08/20/18 21:32 94 H 98 08/20/18 21:27 92 H 99 08/20/18 21:22 92 H 153/71 H 99 08/20/18 21:17 94 H 99 08/20/18 21:12 95 H 98 08/20/18 21:08 90 154/67 H 08/20/18 21:07 89 99 08/20/18 21:05 37.9 C H 18 08/20/18 21:02 86 99 08/20/18 20:57 93 H 98 08/20/18 20:52 89 140/78 99 08/20/18 20:47 89 99 08/20/18 20:45 18 08/20/18 20:42 86 99 08/20/18 20:38 84 139/81 08/20/18 20:37 86 99 08/20/18 20:32 79 99 08/20/18 20:27 87 98 08/20/18 20:23 87 134/66 08/20/18 20:22 87 99 08/20/18 20:17 88 99 08/20/18 20:15 18 08/20/18 20:12 86 99 08/20/18 20:09 83 145/76 H 08/20/18 20:07 88 98 08/20/18 20:02 86 99 08/20/18 19:57 88 98 08/20/18 19:54 93 H 129/80 08/20/18 19:52 93 H 99 08/20/18 19:47 93 H 99 08/20/18 19:42 91 H 98 08/20/18 19:38 86 146/68 H 08/20/18 19:37 87 99 08/20/18 19:32 89 99 08/20/18 19:27 99 H 98 08/20/18 19:23 89 138/63 08/20/18 19:22 89 98 08/20/18 19:17 89 99 08/20/18 19:15 37.5 C 18 08/20/18 19:12 81 98 08/20/18 19:09 94 H 145/71 H 08/20/18 19:07 94 H 99 08/20/18 19:02 90 99 08/20/18 19:00 18 08/20/18 18:57 90 99 08/20/18 18:53 86 138/80 08/20/18 18:52 87 99 08/20/18 18:47 84 98 08/20/18 18:42 86 99 08/20/18 18:39 86 136/66 08/20/18 18:37 80 98 08/20/18 18:32 92 H 99 08/20/18 18:30 18 08/20/18 18:27 84 99 08/20/18 18:23 84 142/67 H 08/20/18 18:22 83 99 08/20/18 18:17 84 98 08/20/18 18:12 91 H 99 08/20/18 18:08 83 142/69 H 08/20/18 18:07 81 99 08/20/18 18:02 77 98 08/20/18 18:00 18 08/20/18 17:57 79 99 08/20/18 17:53 78 142/66 H 08/20/18 17:52 87 100 08/20/18 17:47 81 99 08/20/18 17:42 79 99 08/20/18 17:38 75 147/77 H 08/20/18 17:37 75 98 08/20/18 17:32 80 99 08/20/18 17:30 18 08/20/18 17:27 80 98 08/20/18 17:23 71 142/76 H 08/20/18 17:22 72 99 02/04/19 17:17 74 99 08/20/18 17:12 75 100 08/20/18 17:08 71 139/77 08/20/18 17:07 73 99 08/20/18 17:02 83 100 08/20/18 17:00 37.1 C 18 08/20/18 16:57 74 100 08/20/18 16:53 70 137/77 08/20/18 16:52 71 99 08/20/18 16:47 70 99 08/20/18 16:42 69 99 08/20/18 16:38 70 136/73 08/20/18 16:37 69 99 08/20/18 16:32 71 98 08/20/18 16:30 18 08/20/18 16:27 73 99 08/20/18 16:23 65 136/73 08/20/18 16:22 67 98 08/20/18 16:17 79 100 08/20/18 16:12 70 99 08/20/18 16:08 67 127/70 08/20/18 16:07 73 99 08/20/18 16:02 67 99 08/20/18 16:00 18 08/20/18 15:57 66 100 08/20/18 15:52 75 98 08/20/18 15:47 66 99 08/20/18 15:42 73 100 08/20/18 15:39 82 146/69 H 08/20/18 15:37 82 100 08/20/18 15:32 114 H 99 08/20/18 15:30 18 08/20/18 15:27 71 99 08/20/18 15:23 84 121/57 L 08/20/18 15:22 82 99 08/20/18 15:17 73 99 08/20/18 15:12 71 99 08/20/18 15:09 68 119/61 08/20/18 15:07 68 99 08/20/18 15:03 36.8 C 18 08/20/18 15:02 70 99 08/20/18 14:57 73 100 08/20/18 14:54 72 116/65 08/20/18 14:52 71 99 08/20/18 14:47 73 98 08/20/18 14:42 70 100 08/20/18 14:39 70 126/65 08/20/18 14:37 70 98 08/20/18 14:32 75 96 08/20/18 14:30 18 08/20/18 14:27 77 97 08/20/18 14:23 67 126/62 08/20/18 14:22 69 98 08/20/18 14:17 73 97 08/20/18 14:12 72 97 08/20/18 14:09 67 129/66 08/20/18 14:07 70 99 08/20/18 14:02 70 97 08/20/18 14:00 20 08/20/18 13:57 66 99 08/20/18 13:54 65 130/68 08/20/18 13:52 66 99 08/20/18 13:47 66 98 08/20/18 13:42 68 98 08/20/18 13:37 67 131/70 99 08/20/18 13:32 65 100 08/20/18 13:31 68 133/68 08/20/18 13:30 37.1 C 20 08/20/18 13:27 70 100 08/20/18 13:26 67 131/64 08/20/18 13:24 68 132/66 08/20/18 13:22 68 132/70 100 08/20/18 13:20 66 135/69 08/20/18 13:18 66 18 131/66 08/20/18 13:17 66 99 08/20/18 13:16 66 130/67 08/20/18 13:14 71 131/65 08/20/18 13:12 68 129/71 100 08/20/18 13:10 66 132/74 08/20/18 13:08 64 20 131/83 08/20/18 13:07 68 99 08/20/18 13:02 77 100 08/20/18 12:35 81 100 08/20/18 12:30 79 100 08/20/18 12:25 85 100 08/20/18 12:20 75 100 08/20/18 12:15 77 100 08/20/18 12:10 71 100 08/20/18 12:06 37.1 C 76 20 145/87 H 08/20/18 11:23 73 20 160/86 H 08/20/18 10:12 37.0 C 72 20 146/86 H 08/20/18 07:47 66 140/89 08/20/18 07:44 36.9 C 20 08/20/18 06:13 71 147/86 H Pain Intensity Abdomen: Pain Intensity: 0 Notes Mental Status: alert / awake / arousable Patient Amnestic to Procedure: No Nausea / Vomiting: adequately controlled Pain: adequately controlled Airway Patency, RR, SpO2: stable & adequate BP & HR: stable & adequate Hydration State: stable & adequate Anesthetic Complications: no major complications apparent Epidural: Removed without complications and With tip intact Notes: Pt doing well, without complaints. Epidural site looks clean/dry/intact without erythema or edema
[2018-08-21] MEDS: FERROUS SULFATE 325 MG TAB PO SCH (08:35)
[2018-08-21] MEDS: DOCUSATE SODIUM 100 MG CAP PO SCH ×2 (08:35→20:51)
[2018-08-21] MEDS: PRENATAL VITAMIN 1 TAB PO SCH (08:37)
[2018-08-21] MEDS: ACETAMINOPHEN 325 MG TAB PO PRN (16:22)
[2018-08-21] MEDS ORDERED: OXYTOCIN 20 UNITS in LACTATED RINGER'S 1,000 ML IV SCH (20:45)
[2018-08-21] MEDS: ACETAMINOPHEN W/CODEINE #3 1 TAB PO PRN (23:37)
[2018-08-22] MEDS: IBUPROFEN 600 MG TAB PO PRN ×3 (06:32→19:39)
[2018-08-22 06:40] LABS: Hematocrit (blood only) 31.6 % (37-47); Hemoglobin 10.7 g/dL (12.0-16.0); Mean Corpuscular Hgb Conc 33.9 g/dL (32-36); Mean Corpuscular Volume 86.6 fL (80-100); Mean Platelet Volume 9.8 fL (7.4-10.4); Platelet Count 234 K/uL (130-400); RDW Coefficient of Variation 13.9 % (11.5-14.5); RDW Standard Deviation 44.1 fL (36.4-46.3); Red Blood Count 3.65 M/uL (4.2-5.4); White Blood Count 4.88 K/uL (4.8-10.8)
[2018-08-22] MEDS: DOCUSATE SODIUM 100 MG CAP PO SCH ×2 (09:24→19:39)
[2018-08-22] MEDS: FERROUS SULFATE 325 MG TAB PO SCH (09:24)
[2018-08-22] MEDS: PRENATAL VITAMIN 1 TAB PO SCH (09:24)
--- NOTE | 2018-08-22 09:59 | Obstetrical Progress Note ---
Date of Service August 22, 2018 Subjective Patient is seen and examined. She feels well, no complaints. Ambulating without dizziness Voiding without difficulty Tolerating regular diet with out N&V Bleeding is minimal No fever/ chills/ CP/ SOB/ N&V/ Leg pain Breast feeding without problems Vital Signs Temp Pulse Resp BP Pulse Ox 08/21/18 23:45 36.6 C 75 20 124/78 99 08/21/18 20:30 36.6 C 68 20 129/85 08/21/18 15:10 36.7 C 63 18 134/87 08/21/18 11:45 37 C 70 16 137/86 99 Lab Results 08/20/18 08/20/18 08/20/18 Range/Units 06:25 06:25 06:25 WBC 3.66 L (4.8-10.8) K/uL RBC 4.09 L (4.2-5.4) M/uL Hgb 11.9 L (12.0-16.0) g/dL Hct 35.2 L (37-47) % MCV 86.1 (80-100) fL MCH 29.1 (25-34) pg MCHC 33.8 (32-36) g/dL RDW Std Deviation 42.3 (36.4-46.3) fL RDW Coeff of Cory 13.5 (11.5-14.5) % Plt Count 300 (130-400) K/uL MPV 10.1 (7.4-10.4) fL Immature Gran % (Auto) 0.3 % Neut % (Auto) 48.3 % Lymph % (Auto) 35.8 % Luce % (Auto) 11.7 % Eos % (Auto) 3.6 % Baso % (Auto) 0.3 % Immature Gran # (Auto) 0.01 (0.00-0.02) K/uL Neut # (Auto) 1.77 (1.4-6.5) K/uL Lymph # (Auto) 1.31 (1.2-3.4) K/uL Luce # (Auto) 0.43 (0.11-0.59) K/uL Eos # (Auto) 0.13 (0-0.5) K/uL Baso # (Auto) 0.01 (0-0.2) K/uL Sodium 134 L (136-145) mmol/L Potassium 3.7 (3.5-5.1) mmol/L Chloride 105 (98-107) mmol/L Carbon Dioxide 21 (21-32) mmol/L Anion Gap 8.0 (3-11) BUN 10 (7-18) mg/dl Creatinine 0.55 L (0.6-1.2) mg/dl Est Cr Clr Drug Dosing 186.4 ml/min Est GFR ( Amer) 146.9 Est GFR (Non-Af Amer) 126.8 BUN/Creatinine Ratio 18.5 (10-20) Glucose 75 (70-99) mg/dl Calcium 8.8 (8.5-10.1) mg/dl Total Bilirubin 0.2 (0.2-1) mg/dl AST 20 (15-37) U/L ALT 23 (12-78) U/L Alkaline Phosphatase 82 (45-117) U/L Total Protein 7.1 (6.4-8.2) gm/dl Albumin 2.7 L (3.4-5.0) gm/dl Globulin 4.4 H (2.5-4.0) gm/dl Albumin/Globulin Ratio 0.6 L (0.9-2) Blood Type O Positive Antibody Screen NEGATIVE 08/22/18 Range/Units 06:25 WBC 4.88 (4.8-10.8) K/uL RBC 3.65 L (4.2-5.4) M/uL Hgb 10.7 L (12.0-16.0) g/dL Hct 31.6 L (37-47) % MCV 86.6 (80-100) fL MCH 29.3 (25-34) pg MCHC 33.9 (32-36) g/dL RDW Std Deviation 44.1 (36.4-46.3) fL RDW Coeff of Cory 13.9 (11.5-14.5) % Plt Count 234 (130-400) K/uL MPV 9.8 (7.4-10.4) fL Immature Gran % (Auto) % Neut % (Auto) % Lymph % (Auto) % Luce % (Auto) % Eos % (Auto) % Baso % (Auto) % Immature Gran # (Auto) (0.00-0.02) K/uL Neut # (Auto) (1.4-6.5) K/uL Lymph # (Auto) (1.2-3.4) K/uL Luce # (Auto) (0.11-0.59) K/uL Eos # (Auto) (0-0.5) K/uL Baso # (Auto) (0-0.2) K/uL Sodium (136-145) mmol/L Potassium (3.5-5.1) mmol/L Chloride (98-107) mmol/L Carbon Dioxide (21-32) mmol/L Anion Gap (3-11) BUN (7-18) mg/dl Creatinine (0.6-1.2) mg/dl Est Cr Clr Drug Dosing ml/min Est GFR ( Amer) Est GFR (Non-Af Amer) BUN/Creatinine Ratio (10-20) Glucose (70-99) mg/dl Calcium (8.5-10.1) mg/dl Total Bilirubin (0.2-1) mg/dl AST (15-37) U/L ALT (12-78) U/L Alkaline Phosphatase (45-117) U/L Total Protein (6.4-8.2) gm/dl Albumin (3.4-5.0) gm/dl Globulin (2.5-4.0) gm/dl Albumin/Globulin Ratio (0.9-2) Blood Type Antibody Screen PE: General: Alert, orientedx3, NAD Abd: soft, NT, fundus firm, below Umbilicus Perineum intact, Lochia rubra minimal Ext; NT, no edema AP: 28 yo s/p , ppd# 1 VSS Afebrile doing well Continue routine care All questions were answered D/C home tomorrow Physical Exam 2 Vital Signs (Past 24 Hours): Last Vital Signs Temp 36.6 C 08/21/18 23:45 Pulse 75 08/21/18 23:45 Resp 20 08/21/18 23:45 BP 124/78 08/21/18 23:45 Pulse Ox 99 08/21/18 23:45
[2018-08-22] MEDS ORDERED: BISACODYL 5 MG TABEC PO SCH (20:00)
[2018-08-22] MEDS: ACETAMINOPHEN W/CODEINE #3 1 TAB PO PRN (22:54)
[2018-08-23] MEDS: IBUPROFEN 600 MG TAB PO PRN ×3 (06:22→16:40)
[2018-08-23 06:34] LABS: Hematocrit (blood only) 30.9 % (37-47); Hemoglobin 10.4 g/dL (12.0-16.0)
[2018-08-23] MEDS: DOCUSATE SODIUM 100 MG CAP PO SCH (07:46)
[2018-08-23] MEDS: PRENATAL VITAMIN 1 TAB PO SCH (07:46)
[2018-08-23] MEDS: FERROUS SULFATE 325 MG TAB PO SCH (07:47)
--- NOTE | 2018-08-23 08:19 | Obstetrical Progress Note ---
Date of Service August 23, 2018 Subjective doing well baby staying will be nesting Physical Exam 2 Vital Signs (Past 24 Hours): Last Vital Signs Temp 36.8 C 08/22/18 22:45 Pulse 68 08/22/18 22:45 Resp 16 08/22/18 22:45 BP 138/86 08/22/18 22:45 Pulse Ox 100 08/22/18 22:45 Constitutional: WD/WN, vitals as above comfortable Gastrointestinal (Abdomen): abdomen soft non-tender no edema Neg honam's will d/c home to [facility]
== END 2018-08-23 17:35 | disposition home or self-care (01) | DRG 806 ==
LOC: OPB 04:57 → 4S1 05:05 → 4S2 08-21 02:52

== ENCOUNTER 2022-11-14 06:05 | Inpatient (IN) ==
[2022-11-14] MEDS ORDERED: LIDOCAINE 1% LOCAL 20 ML VIAL INFIL PRN (08:23)
[2022-11-14] MEDS ORDERED: OXYTOCIN 30 UNITS/500 ML BAG IV PRN ×2 (08:23→09:47)
--- NOTE | 2022-11-14 08:51 | Obstetrical Progress Note ---
Date of Service November 14, 2022 Assessment & Plan (1) : Plan: Induction for postdates FHR; CAT1 Ctx; 4-5mins VE: 2/post/soft Admission and Anticipated Discharge Date Admission Date: November 14, 2022 Results & Data Vital Signs (Past 12 Hours) Vital Signs Pulse Resp BP 11/14/22 06:35 16 11/14/22 06:33 85 135/83
[2022-11-14 08:57] LABS: Hematocrit (blood only) 32.3 % (37.0-47.0); Hemoglobin 11.2 g/dl (12.0-16.0); Mean Corpuscular Hemoglobin 29.8 pg (25.0-34.0); Mean Corpuscular Hgb Conc 34.7 g/dL (32.0-36.0); Mean Corpuscular Volume 85.9 fL (80.0-100.0); Mean Platelet Volume 10.6 fL (9.4-12.4); Platelet Count 282 K/uL (130-400); RDW Coefficient of Variation 13.5 % (11.5-14.5); RDW Standard Deviation 42.4 fL (36.4-46.3); Red Blood Count 3.76 M/uL (4.20-5.40); White Blood Count 3.91 K/ul (4.8-10.8)
[2022-11-14] MEDS: LACTATED RINGER'S 1,000 ML IV PRN ×3 (09:44→16:32)
[2022-11-14] MEDS ORDERED: BUTORPHANOL TARTRATE 1 MG/ML VIAL IV PRN (09:46)
[2022-11-14] MEDS: ceFAZolin 2000MG 2,000 MG/15 ML SYR IV STA ×2 (09:53→10:03)
--- NOTE | 2022-11-14 10:38 | History & Physical Report ---
Date of Service November 14, 2022 Assessment & Plan (1) Post-dates : Plan: will start Oxytocin for augmentation Admission and Anticipated Discharge Date Admission Date: November 14, 2022 History of Present Illness Chief Complaint: contractions Primary Care Provider: Jennifer Pino MD 32 F [id number] at 40.3 weeks admitted this morning with mild contractions and scheduled for induction of labor today. GBS is positive. Allergies Allergy/AdvReac Type Severity Reaction Status Date / Time sumatriptan Allergy Mild . Verified 05/23/22 00:17 amoxicillin Allergy Unknown UNK Verified 05/23/22 00:17 Penicillins Allergy Unknown feels like Verified 05/23/22 00:17 bugs are clawing on skin Home Medications Medication Instructions Recorded Confirmed Type prenat.vits,harry,quk-wjyp-luaae 1 tab PO DAILY 11/14/22 11/14/22 History Patient History Medical History Anemia B12 deficiency Migraine Nausea & vomiting (~10/04/22) Neutropenia Polyarthropathy Surgical History No pertinent past surgical history Family History Mother Family history of diabetes mellitus Father Hypertension Brother Hypertension Father Stroke Social History Smoking Status: Former smoker Second Hand Exposure: No; Do You Dip or Chew Tobacco: No; Hx Alcohol Use: No Hx Substance Use: No Preferred Language: Ukrainian Communication Ability: Effective Cotton Candy Maker Required: No Beliefs That Will Affect Care: None marital status: Single marital status details: Devan Le Current Living Situation: Significant Other Other Information That Helps Us Care for You: No Feels Safe at Home: Yes Safety Concerns: Feels Safe At This Time Assistive Devices: None OB History x1 Review of Systems All systems reviewed & are unremarkable except as noted in HPI & below Physical Exam Constitutional: WD/WN, vitals as above Eyes: PERRL, conjunctivae normal, anicteric sclerae Respiratory: normal respiratory effort, lungs clear to auscultation Gastrointestinal (Abdomen): normal bowel sounds, soft, nontender, no hepatosplenomegaly Musculoskeletal: Extremities: extremities normal to inspection Skin: no rashes, warm and dry Neurologic: patellar DTR's 2+ bilat, sensation intact Psychiatric: A+Ox3, euthymic affect Genitourinary: GBS is positive Results & Data Vital Signs (Past 12 Hours) Vital Signs Pulse Resp BP 11/14/22 06:35 16 11/14/22 10:31 81 150/91 H 11/14/22 10:22 77 147/93 H 11/14/22 10:10 82 141/92 H 11/14/22 06:33 85 135/83 Laboratory Results 11/14/22 11/14/22 11/14/22 07:00 08:33 08:33 WBC 3.91 L RBC 3.76 L Hgb 11.2 L Hct 32.3 L MCV 85.9 MCH 29.8 MCHC 34.7 RDW Std Deviation 42.4 RDW Coeff of Cory 13.5 Plt Count 282 MPV 10.6 SARS-CoV-2, RNA, NAAT NEGATIVE Blood Type O Positive Antibody Screen NEGATIVE Draw and Hold Cancelled Code Status & VTE Plan VTE Prophylaxis Plan VTE Prophylaxis will be ordered: No Monitoring External Monitor Cat 1
[2022-11-14] MEDS ORDERED: ePHEDrine sulfate 50 MG/ML AMP ONE (12:21)
[2022-11-14] MEDS ORDERED: fentaNYL citrate PF 100 MCG/2 ML VIAL ONE ×2 (12:22→23:55)
[2022-11-14] MEDS ORDERED: LIDOCAINE 2%/EPINEPHRINE 1:200,000 20 ML PF ONE (12:22)
[2022-11-14] MEDS ORDERED: BUPIVACAINE 0.25% PF 30 ML VIAL ONE ×2 (12:22→23:55)
[2022-11-14] MEDS ORDERED: SODIUM CHLORIDE 0.9% PF INJ 10 ML VIAL ONE (12:22)
[2022-11-14] MEDS ORDERED: fentaNYL 2MCG/ML ROPIVACAINE 1.25MG/ML 100 ML BAG EPI ONE (12:23)
[2022-11-14] MEDS ORDERED: diphenhydrAMINE 50 MG/ML VIAL IV PRN (12:46)
[2022-11-14] MEDS ORDERED: NALBUPHINE HCL INJ 10 MG/ML AMP IV PRN (12:46)
[2022-11-14] MEDS ORDERED: ePHEDrine sulfate 50 MG/ML AMP IV PRN (12:46)
[2022-11-14] MEDS ORDERED: NALOXONE HCL 0.4 MG/1 ML VIAL/CARP IV PRN (12:46)
[2022-11-14] MEDS ORDERED: fentaNYL 2MCG/ML ROPIVACAINE 1.25MG/ML 100 ML BAG EPI PRN (12:46)
[2022-11-14] MEDS ORDERED: NALOXONE HCL 1 MG in SODIUM CHLORIDE 0.9% 1000ML 1,000 ML IV PRN (12:46)
[2022-11-14] MEDS ORDERED: METOCLOPRAMIDE HCL 20 MG in SODIUM CHLORIDE 0.9% 50 ML IV PRN (12:46)
--- NOTE | 2022-11-14 12:48 | Anesthesiology Consultation ---
Date of Service November 14, 2022 Assessment & Plan Chart Review Chart Review: Acceptable Risk for Labor Epidural Consults Requested none ASA ASA2 Proposed Anesthesia Anesthesia Type: Labor Epidural Risk / Benefits Reviewed With: PT / POA / Parent / Guardian, Accepts Plan and Informed Consent Obtained History Height/Weight Height: 5 ft 3 in Weight: 115.2 kg Allergies Allergy/AdvReac Type Severity Reaction Status Date / Time sumatriptan Allergy Mild . Verified 05/23/22 00:17 amoxicillin Allergy Unknown UNK Verified 05/23/22 00:17 Penicillins Allergy Unknown feels like Verified 05/23/22 00:17 bugs are clawing on skin Medications Home Medications Medication Instructions Recorded Confirmed Last Taken prenat.vits,harry,cuw-cufw-zkzor 1 tab PO DAILY 11/14/22 11/14/22 11/13/22 Active Medications Generic Name Dose Route Start Last Admin Trade Name Freq PRN Reason Stop Dose Admin Butorphanol Tartrate 1 mg 11/14/22 09:46 11/14/22 10:05 Butorphanol Tartrate 1 Mg/Ml Vial IV 12/14/22 09:45 1 mg Q2HWA PRN Administration Pain Lactated Ringer's 1,000 mls @ 125 mls/hr 11/14/22 08:23 11/14/22 12:30 Lr IV 11/16/22 08:22 999 mls/hr .Q8H PRN Infusion L&D Protocol Protocol Oxytocin 30 units in 500 mls @ 5 mls/hr 11/14/22 09:47 11/14/22 11:42 Pitocin IV 11/16/22 09:46 0.3 units/hr .Q24H PRN 5 mls/hr Labor Induction/Augmentation Titration Protocol 0.3 UNITS/HR NPO Date Last Intake of Fluids: 11/14/22 Time Last Intake of Fluids: 12:00 Date Last Intake of Solids: 11/14/22 Time Last Intake of Solids: 05:30 Past Medical History Medical History Anemia B12 deficiency Migraine Nausea & vomiting (~10/04/22) Neutropenia Polyarthropathy Exercise / Class Metabolic Activity II 4-5 Yardwork/Stairs/Walk up hill Past Family History Family History Mother Family history of diabetes mellitus Father Hypertension Brother Hypertension Father Stroke Past Surgical History Surgical History No pertinent past surgical history Past Anesthesia History No Hx of Anesthesia Complications and No Family Hx of Anesthesia Complications History of PONV No Hx of PONV and No Hx of Motion Sickness Social History Smoking Status: Former smoker Do You Dip or Chew Tobacco: No Hx Alcohol Use: No Hx Substance Use: No substance use type: does not use Physical Exam Vital Signs Last Vital Signs Temp 36.9 C 11/14/22 10:54 Pulse 73 11/14/22 12:45 Resp 20 11/14/22 10:54 BP 138/80 11/14/22 12:25 Pulse Ox 98 11/14/22 12:45 ENMT Mouth: no TMJ abnormality Thyromental Distance: > or= 3.5 Finger Breadths Mallampati Class: III Neck normal visual inspection and trachea midline; neck extension not limited Respiratory normal respiratory effort Auscultation: lungs clear to auscultation bilaterally Cardiovascular Rate/Rhythm: regular rate and regular rhythm Heart Sounds: no murmur Musculoskeletal Spine: normal cervical ROM Extremities: full ROM of extremities Neurologic moves all extremities Psychiatric Orientation: alert and oriented x 3 Testing Laboratory Results 11/14/22 08:33 Blood Type O Positive 11/14/22 08:33 Antibody Screen NEGATIVE 11/14/22 08:33
[2022-11-14] MEDS: ACETAMINOPHEN 325 MG TAB PO PRN ×2 (14:01→17:49)
[2022-11-14] MEDS: ONDANSETRON INJ 2 MG/ML 2 ML VIAL IV PRN ×2 (14:29→20:23)
--- NOTE | 2022-11-14 15:04 | Labor Progress Brief Note ---
Date of Service November 14, 2022 Assessment & Plan Admission and Anticipated Discharge Date Admission Date: November 14, 2022 Physical Exam Genitourinary: Manual OB Exam: + cervical dilation 1 cm, + cervical effacement 50% and + station high OB Exam Monitor Tracing: + external FHT monitor used, + external uterine monitor used, + category I and + normal FHT variability attempted AROM but not able to rupture at this time Results & Data Vital Signs (Past 12 Hours) Vital Signs Temp Pulse Resp BP Pulse Ox 11/14/22 06:35 16 11/14/22 14:59 77 96 11/14/22 14:54 80 97 11/14/22 14:50 20 11/14/22 14:50 36.7 C 20 11/14/22 14:51 85 128/84 11/14/22 14:49 85 97 11/14/22 14:44 75 97 11/14/22 14:39 85 98 11/14/22 14:37 82 136/69 11/14/22 14:34 88 97 11/14/22 14:30 20 11/14/22 14:30 20 11/14/22 14:29 97 H 98 11/14/22 14:24 72 98 11/14/22 14:21 70 140/77 11/14/22 14:19 72 98 11/14/22 14:14 69 98 11/14/22 14:09 67 98 11/14/22 14:04 97 11/14/22 14:04 67 11/14/22 14:04 64 144/76 H 11/14/22 14:02 67 143/80 H 11/14/22 14:00 67 137/84 11/14/22 13:59 66 98 11/14/22 13:58 68 130/79 11/14/22 13:56 67 131/88 11/14/22 13:54 98 11/14/22 13:54 72 11/14/22 13:54 68 137/74 11/14/22 13:52 65 18 142/75 H 11/14/22 13:49 66 98 11/14/22 13:50 62 18 141/75 H 11/14/22 13:48 71 18 137/75 11/14/22 13:46 64 18 140/74 11/14/22 13:44 99 11/14/22 13:44 69 05 13:44 67 138/73 05 13:42 80 137/80 05 13:39 66 98 05 13:40 74 145/77 H 11/14/22 13:38 69 143/74 H 11/14/22 13:36 65 142/74 H 11/14/22 13:34 97 11/14/22 13:34 68 11/14/22 13:34 65 140/67 05 13:32 67 145/70 H 11/14/22 13:30 109 H 136/90 11/14/22 13:29 103 H 98 11/14/22 13:25 98 H 99 11/14/22 13:24 88 134/67 11/14/22 13:22 87 135/77 05 13:20 98 11/14/22 13:20 80 11/14/22 13:20 75 149/81 H 11/14/22 13:18 74 141/82 H 11/14/22 13:15 82 98 11/14/22 13:12 86 153/89 H 11/14/22 13:10 81 149/79 H 97 11/14/22 13:05 76 97 11/14/22 13:01 78 18 145/81 H 11/14/22 13:00 81 98 11/14/22 12:55 75 99 11/14/22 12:50 75 98 11/14/22 12:45 73 98 11/14/22 12:40 74 98 11/14/22 12:35 74 97 11/14/22 12:30 74 98 05 12:25 72 138/80 97 05 07:08 18 11/14/22 07:08 37.1 C 18 11/14/22 10:54 36.9 C 75 20 128/73 05 10:52 74 18 139/79 05 10:41 80 155/91 H 05 10:31 81 150/91 H 11/14/22 10:22 77 147/93 H 11/14/22 10:10 82 141/92 H 05 06:33 85 135/83
--- NOTE | 2022-11-14 16:51 | Labor Progress Brief Note ---
Date of Service November 14, 2022 Assessment & Plan Admission and Anticipated Discharge Date Admission Date: November 14, 2022 Physical Exam Genitourinary: OB Exam Monitor Tracing: + external FHT monitor used, + external uterine monitor used, + category I and + normal FHT variability Hannah balloon placed transcervically with 35 ml. saline placed Hannah cath inserted into bladder Results & Data Vital Signs (Past 12 Hours) Vital Signs Temp Pulse Resp BP Pulse Ox 11/14/22 06:35 16 11/14/22 16:49 75 111/57 L 98 11/14/22 16:44 77 97 11/14/22 16:39 72 97 11/14/22 16:34 85 97 11/14/22 16:35 80 115/67 11/14/22 16:29 76 97 11/14/22 16:24 75 97 11/14/22 16:20 75 128/72 11/14/22 16:19 75 98 11/14/22 16:14 76 97 11/14/22 16:09 71 98 11/14/22 16:04 76 96 11/14/22 16:05 74 134/67 11/14/22 15:59 73 96 11/14/22 15:54 73 96 11/14/22 15:49 71 96 11/14/22 15:50 71 130/70 11/14/22 15:44 73 96 11/14/22 15:39 70 96 11/14/22 15:36 68 133/71 11/14/22 15:34 69 97 11/14/22 15:29 69 97 11/14/22 15:24 71 96 11/14/22 15:20 69 130/73 11/14/22 15:19 70 97 11/14/22 15:14 72 97 11/14/22 15:09 74 98 11/14/22 15:04 74 97 11/14/22 15:05 73 18 127/63 11/14/22 14:59 77 96 11/14/22 14:54 80 97 11/14/22 14:50 20 11/14/22 14:50 36.7 C 20 11/14/22 14:51 85 128/84 11/14/22 14:49 85 97 11/14/22 14:44 75 97 11/14/22 14:39 85 98 11/14/22 14:37 82 136/69 05 14:34 88 97 05 14:30 20 05 14:30 20 05 14:29 97 H 98 11/14/22 14:24 72 98 11/14/22 14:21 70 140/77 05 14:19 72 98 11/14/22 14:14 69 98 11/14/22 14:09 67 98 11/14/22 14:04 97 11/14/22 14:04 67 05 14:04 64 144/76 H 11/14/22 14:02 67 20 143/80 H 11/14/22 14:00 67 20 137/84 11/14/22 13:59 66 98 11/14/22 13:58 68 20 130/79 05 13:56 67 131/88 11/14/22 13:54 98 11/14/22 13:54 72 11/14/22 13:54 68 20 137/74 05 13:52 65 18 142/75 H 05 13:49 66 98 11/14/22 13:50 62 18 141/75 H 11/14/22 13:48 71 18 137/75 05 13:46 64 18 140/74 11/14/22 13:44 99 11/14/22 13:44 69 11/14/22 13:44 67 18 138/73 11/14/22 13:42 80 18 137/80 11/14/22 13:39 66 98 11/14/22 13:40 74 18 145/77 H 11/14/22 13:38 69 18 143/74 H 11/14/22 13:36 65 18 142/74 H 11/14/22 13:34 97 11/14/22 13:34 68 05 13:34 65 140/67 05 13:32 67 20 145/70 H 11/14/22 13:30 109 H 18 136/90 11/14/22 13:29 103 H 98 11/14/22 13:25 98 H 99 11/14/22 13:24 88 134/67 05 13:22 87 135/77 11/14/22 13:20 98 05 13:20 80 05/01/23 13:20 75 149/81 H 11/14/22 13:18 74 141/82 H 11/14/22 13:15 82 98 11/14/22 13:12 86 153/89 H 11/14/22 13:10 81 149/79 H 97 11/14/22 13:05 76 97 11/14/22 13:01 78 18 145/81 H 11/14/22 13:00 81 98 11/14/22 12:55 75 99 11/14/22 12:50 75 98 11/14/22 12:45 73 98 11/14/22 12:40 74 98 11/14/22 12:35 74 97 11/14/22 12:30 74 98 11/14/22 12:25 72 138/80 97 11/14/22 07:08 18 11/14/22 07:08 37.1 C 18 11/14/22 10:54 36.9 C 75 20 128/73 11/14/22 10:52 74 18 139/79 11/14/22 10:41 80 155/91 H 11/14/22 10:31 81 150/91 H 11/14/22 10:22 77 147/93 H 11/14/22 10:10 82 141/92 H 11/14/22 06:33 85 135/83
[2022-11-14] MEDS: ceFAZolin 1000MG 1,000 MG/7.5 ML SYR IV PRN (17:45)
--- NOTE | 2022-11-14 20:31 | Labor Progress Brief Note ---
Date of Service November 14, 2022 Assessment & Plan Admission and Anticipated Discharge Date Admission Date: November 14, 2022 Physical Exam Genitourinary: Manual OB Exam: + cervical dilation 3 cm, + cervical effacement 60% and + station high OB Exam Monitor Tracing: + external FHT monitor used, + external uterine monitor used, + category I and + normal FHT variability Results & Data Vital Signs (Past 12 Hours) Vital Signs Temp Pulse Resp BP Pulse Ox 11/14/22 20:29 80 97 11/14/22 20:24 84 97 11/14/22 20:19 83 97 11/14/22 20:20 88 134/69 11/14/22 20:14 89 96 11/14/22 20:09 88 97 11/14/22 20:04 83 132/63 97 11/14/22 19:59 83 97 11/14/22 19:54 85 97 11/14/22 19:49 82 98 11/14/22 19:50 81 131/63 11/14/22 19:44 80 98 11/14/22 19:39 83 98 11/14/22 19:36 83 126/62 11/14/22 19:34 85 97 11/14/22 19:29 77 97 11/14/22 19:24 81 98 11/14/22 19:19 84 127/64 97 11/14/22 19:14 79 98 11/14/22 19:09 82 98 11/14/22 19:04 78 96 11/14/22 19:05 37.0 C 78 16 138/69 11/14/22 18:59 83 97 11/14/22 18:54 81 97 11/14/22 18:49 82 141/77 H 97 11/14/22 18:44 78 97 11/14/22 18:39 76 97 11/14/22 18:34 78 134/73 97 11/14/22 18:29 79 98 11/14/22 18:24 79 98 11/14/22 18:19 79 141/79 H 97 11/14/22 18:14 109 H 99 11/14/22 18:09 79 97 11/14/22 18:04 76 96 11/14/22 18:05 79 139/74 11/14/22 17:59 78 97 11/14/22 17:54 78 98 11/14/22 17:50 81 132/75 05 17:49 83 98 05 17:44 74 97 05 17:39 76 98 11/14/22 17:34 77 129/82 98 05 17:29 79 98 11/14/22 17:24 71 98 11/14/22 17:20 73 123/78 11/14/22 17:19 82 97 11/14/22 17:14 80 96 11/14/22 17:09 75 97 05 17:04 77 119/59 L 99 11/14/22 16:59 74 97 05 16:54 77 97 11/14/22 16:49 75 111/57 L 98 11/14/22 16:44 77 97 11/14/22 16:39 72 97 11/14/22 16:34 85 97 11/14/22 16:35 80 20 115/67 11/14/22 16:29 76 97 11/14/22 16:24 75 97 11/14/22 16:20 75 128/72 05 16:19 75 98 11/14/22 16:14 76 97 11/14/22 16:09 71 98 11/14/22 16:04 76 96 11/14/22 16:05 74 134/67 11/14/22 15:59 73 96 11/14/22 15:54 73 96 11/14/22 15:49 71 96 11/14/22 15:50 71 130/70 05 15:44 73 96 11/14/22 15:39 70 96 11/14/22 15:36 68 133/71 05 15:34 69 97 11/14/22 15:29 69 97 05 15:24 71 96 05 15:20 69 130/73 05 15:19 70 97 11/14/22 15:14 72 97 11/14/22 15:09 74 98 11/14/22 15:04 74 97 11/14/22 15:05 73 18 127/63 05 14:59 77 96 11/14/22 14:54 80 97 05 14:50 20 11/14/22 14:50 36.7 C 20 11/14/22 14:51 85 128/84 05 14:49 85 97 11/14/22 14:44 75 97 05 14:39 85 98 11/14/22 14:37 82 136/69 05 14:34 88 97 11/14/22 14:30 20 11/14/22 14:30 20 11/14/22 14:29 97 H 98 11/14/22 14:24 72 98 11/14/22 14:21 70 140/77 05 14:19 72 98 11/14/22 14:14 69 98 11/14/22 14:09 67 98 11/14/22 14:04 97 11/14/22 14:04 67 11/14/22 14:04 64 144/76 H 11/14/22 14:02 67 20 143/80 H 11/14/22 14:00 67 20 137/84 11/14/22 13:59 66 98 11/14/22 13:58 68 20 130/79 11/14/22 13:56 67 131/88 11/14/22 13:54 98 11/14/22 13:54 72 11/14/22 13:54 68 20 137/74 05 13:52 65 18 142/75 H 11/14/22 13:49 66 98 11/14/22 13:50 62 18 141/75 H 11/14/22 13:48 71 18 137/75 11/14/22 13:46 64 18 140/74 11/14/22 13:44 99 11/14/22 13:44 69 05 13:44 67 18 138/73 05 13:42 80 18 137/80 11/14/22 13:39 66 98 11/14/22 13:40 74 18 145/77 H 11/14/22 13:38 69 18 143/74 H 11/14/22 13:36 65 18 142/74 H 11/14/22 13:34 97 11/14/22 13:34 68 11/14/22 13:34 65 140/67 05 13:32 67 20 145/70 H 11/14/22 13:30 109 H 18 136/90 11/14/22 13:29 103 H 98 11/14/22 13:25 98 H 99 11/14/22 13:24 88 134/67 11/14/22 13:22 87 135/77 11/14/22 13:20 98 11/14/22 13:20 80 05 13:20 75 149/81 H 11/14/22 13:18 74 141/82 H 11/14/22 13:15 82 98 11/14/22 13:12 86 153/89 H 11/14/22 13:10 81 149/79 H 97 11/14/22 13:05 76 97 11/14/22 13:01 78 18 145/81 H 11/14/22 13:00 81 98 11/14/22 12:55 75 99 11/14/22 12:50 75 98 11/14/22 12:45 73 98 11/14/22 12:40 74 98 11/14/22 12:35 74 97 11/14/22 12:30 74 98 11/14/22 12:25 72 138/80 97 11/14/22 10:54 36.9 C 75 20 128/73 11/14/22 10:52 74 18 139/79 11/14/22 10:41 80 155/91 H 11/14/22 10:31 81 150/91 H 11/14/22 10:22 77 147/93 H 11/14/22 10:10 82 141/92 H
[2022-11-14] MEDS ORDERED: NURSING L&D Epidural Breakthrough Pain Update ONE (23:46)
--- NOTE | 2022-11-15 00:28 | Anesthesia Procedure Note ---
Date of Service November 15, 2022 Anesthesia Epidural Re-Dose Vital Signs Temp Pulse Resp BP Pulse Ox 37.2 C 87 18 141/71 H 96 11/14/22 23:00 11/15/22 00:24 11/14/22 23:00 11/15/22 00:24 11/15/22 00:19 Notes Pain Intensity: 10 Dilatation (cm): 4.5 Effacement (%): 80 Called by nursing to evaluate epidural as the patient is having increased pain. level to ice bilateral t7. epidural running 12ml/hr. patient states pain is most y pressure but some sharp at the beginning of ctx. The epidural was re-dosed with the following medications (all medications via epidural route) after negative aspiration of the epidural catheter for CSF/HEME. 0.25 Bupivacaine 8ml with Fentanyl 100 mcg via epidural After Epidural Re-Dose Mental Status: alert / awake / arousable and participated in evaluation Pain: improving with treatment Airway Patency, RR, SpO2: stable & adequate BP & HR: stable & adequate
[2022-11-15] MEDS: LACTATED RINGER'S 1,000 ML IV PRN (00:37)
[2022-11-15] MEDS: ceFAZolin 1000MG 1,000 MG/7.5 ML SYR IV PRN (01:59)
--- NOTE | 2022-11-15 02:37 | Delivery Summary ---
Vaginal Delivery Summary Date of Service November 15, 2022 Vaginal Delivery Summary Delivery Note live male OMA with Apgars 9/9 and birthweight pending. Delayed cord clamping and cut . Cord blood obtained followed by spontaneous delivery of intact placenta with 3VC. No tears. EBL 150 ml. Final sponge and instrument count are correct. Mom and baby stable.
[2022-11-15] MEDS ORDERED: IBUPROFEN 600 MG TAB PO ONE (03:42)
[2022-11-15] MEDS ORDERED: ACETAMINOPHEN 325 MG TAB PO PRN (03:43)
[2022-11-15] MEDS ORDERED: DIPHTHERIA/TETANUS/PERTUSSIS 0.5mL SYR/VIAL (Age 7+yrs) IM ONE (03:43)
[2022-11-15] MEDS ORDERED: BENZOCAINE 20% AER SPR 82.5 GM CAN EXT PRN (03:43)
[2022-11-15] MEDS ORDERED: bisacodyL 10 MG SUPP PR PRN (03:43)
[2022-11-15] MEDS ORDERED: HYDROCORTISONE ACETATE 25 MG SUPP PR PRN (03:43)
[2022-11-15] MEDS ORDERED: OXYTOCIN 30 UNITS/500 ML BAG IV PRN (03:43)
[2022-11-15] MEDS ORDERED: diphenhydrAMINE Capsule 25 MG CAP PO PRN (05:12)
--- NOTE | 2022-11-15 07:04 | Anesthesia Procedure Note ---
Date of Service November 15, 2022 Anesthesia Post Epidural Note Vital Signs Vital Signs: Temp Pulse Resp BP Pulse Ox O2 Del Method 36.9 C 106 H 16 146/82 H 83 L Room Air 11/15/22 04:35 11/15/22 04:35 11/15/22 04:35 11/15/22 04:35 11/15/22 02:14 11/15/22 04:35 Pain Intensity Bilateral Abdomen: Pain Intensity: 10 Generalized: Pain Intensity: 4 Notes Mental Status: alert / awake / arousable and participated in evaluation Patient Amnestic to Procedure: No Nausea / Vomiting: adequately controlled Pain: adequately controlled Airway Patency, RR, SpO2: stable & adequate BP & HR: stable & adequate Hydration State: stable & adequate Neuraxial Anesthesia: was administered and sensory block resolved Anesthetic Complications: no major complications apparent and Pt Satisfied with anesthetic care Epidural: Removed without complications and With tip intact
[2022-11-15] MEDS ORDERED: NON-FORMULARY MEDICATION (Prenat.Vits,Cal,Min-Iron-Folic Tablet) PO SCH (09:00)
[2022-11-15] MEDS: DOCUSATE SODIUM 100 MG CAP PO SCH ×2 (09:05→20:08)
[2022-11-15] MEDS: PRENATAL VITAMIN 1 TAB PO SCH (09:05)
[2022-11-15] MEDS: FERROUS SULFATE 325 MG TAB PO SCH (09:05)
[2022-11-15] MEDS: IBUPROFEN 600 MG TAB PO PRN ×3 (09:06→20:08)
[2022-11-15] MEDS: traMADol HCL 50 MG TABLET PO PRN ×2 (17:11→21:41)
[2022-11-16] MEDS: IBUPROFEN 600 MG TAB PO PRN ×2 (03:26→07:40)
[2022-11-16] MEDS: traMADol HCL 50 MG TABLET PO PRN (03:26)
[2022-11-16 06:53] LABS: Hematocrit (blood only) 27.8 % (37.0-47.0); Hemoglobin 9.4 g/dl (12.0-16.0); Mean Corpuscular Hemoglobin 29.9 pg (25.0-34.0); Mean Corpuscular Hgb Conc 33.8 g/dL (32.0-36.0); Mean Corpuscular Volume 88.5 fL (80.0-100.0); Mean Platelet Volume 10.6 fL (9.4-12.4); Platelet Count 230 K/uL (130-400); RDW Coefficient of Variation 13.9 % (11.5-14.5); RDW Standard Deviation 45.2 fL (36.4-46.3); Red Blood Count 3.14 M/uL (4.20-5.40); White Blood Count 5.89 K/ul (4.8-10.8)
[2022-11-16] MEDS: DOCUSATE SODIUM 100 MG CAP PO SCH (07:40)
[2022-11-16] MEDS: PRENATAL VITAMIN 1 TAB PO SCH (07:41)
[2022-11-16] MEDS: FERROUS SULFATE 325 MG TAB PO SCH (07:41)
--- NOTE | 2022-11-16 08:53 | Obstetrical Progress Note ---
Date of Service November 16, 2022 Assessment & Plan Admission and Anticipated Discharge Date Admission Date: November 14, 2022 Subjective Patient is seen and examined. She feels well, no complaints other than soreness on back at epidural site, getting better Ambulating without dizziness Voiding without difficulty Tolerating regular diet with out N&V Bleeding is minimal No fever/ chills/ CP/ SOB/ N&V/ Leg pain/ numbness nor tingling Bottle feeding without problems Lab Results 11/14/22 11/14/22 11/14/22 Range/Units 07:00 08:33 08:33 WBC 3.91 L (4.8-10.8) K/ul RBC 3.76 L (4.20-5.40) M/uL Hgb 11.2 L (12.0-16.0) g/dl Hct 32.3 L (37.0-47.0) % MCV 85.9 (80.0-100.0) fL MCH 29.8 (25.0-34.0) pg MCHC 34.7 (32.0-36.0) g/dL RDW Std Deviation 42.4 (36.4-46.3) fL RDW Coeff of Cory 13.5 (11.5-14.5) % Plt Count 282 (130-400) K/uL MPV 10.6 (9.4-12.4) fL SARS-CoV-2, RNA, NAAT NEGATIVE (NEGATIVE) Blood Type O Positive Antibody Screen NEGATIVE Draw and Hold Cancelled 11/16/22 Range/Units 06:19 WBC 5.89 (4.8-10.8) K/ul RBC 3.14 L (4.20-5.40) M/uL Hgb 9.4 L (12.0-16.0) g/dl Hct 27.8 L (37.0-47.0) % MCV 88.5 (80.0-100.0) fL MCH 29.9 (25.0-34.0) pg MCHC 33.8 (32.0-36.0) g/dL RDW Std Deviation 45.2 (36.4-46.3) fL RDW Coeff of Cory 13.9 (11.5-14.5) % Plt Count 230 (130-400) K/uL MPV 10.6 (9.4-12.4) fL SARS-CoV-2, RNA, NAAT (NEGATIVE) Blood Type Antibody Screen Draw and Hold PE: General: Alert, orientedx3, NAD Back: normal to inspection and paltation, NT, no bruise at epidural site, Abd: soft, NT, fundus firm, below Umbilicus Perineum intact, Lochia rubra minimal Ext; NT, no edema AP: 32 yo s/p , ppd# 1 VSS Afebrile doing well Desires d/c today Continue routine care All questions were answered D/C home , f/u in office Results & Data Vital Signs (Past 12 Hours) Vital Signs Temp Pulse Resp BP Pulse Ox O2 Del Method 11/16/22 07:40 36.6 C 71 18 129/82 100 Room Air 11/16/22 00:00 36.5 C 70 18 128/73
[2022-11-16] MEDS ORDERED: bisacodyL 5 MG TABEC PO SCH (20:00)
== END 2022-11-16 12:50 | disposition home or self-care (01) | DRG 807 ==
LOC: 4S1 06:05 → 4E2 11-15 04:43